=== PATIENT | male | born 2000 | race Caucasian/White ===

== ENCOUNTER 2024-09-04 08:29 | Emergency (ER) | payer SELFPAY ==
[~2024-09-04] VITALS: Ht 185.4 cm; Wt 90.0 kg
[2024-09-04 08:31] VITALS: BP 148/87; PULSE 100; RESP 14; TEMP 98; O2SAT 99
== END 2024-09-04 08:38 | disposition home or self-care (01) ==
LOC: ER 08:29
DX: G40.909 Epilepsy, unspecified, not intractable, without status epilepticus (principal)
CPT/HCPCS: 99283